=== PATIENT | female | born 1995 | race African-American/Black ===

== ENCOUNTER 2016-10-18 15:25 | Emergency (ER) | payer OTHER ==
[~2016-10-18] VITALS: Ht 167.6 cm; Wt 75.3 kg
[2016-10-18 15:33] VITALS: TEMP 36.7; Ht 167.6 cm; Wt 75.3 kg
[2016-10-18] MEDS ORDERED: KETOROLAC TROMETHAMINE 30 MG/ML VIAL IV STA (15:50)
[2016-10-18 16:05] LABS: HEMATOCRIT 37.9 % (37-47); MEAN CELL VOLUME 86.1 fL (80-100); MEAN CORPUSCULAR HEMOGLOBIN 28.6 pg (25-34); MEAN CORPUSCULAR HGB CONC 33.2 g/dl (32-36); MEAN PLATELET VOLUME 10.4 fL (7.4-10.4); PLATELET COUNT 244 K/uL (130-400); WHITE BLOOD COUNT 4.89 K/uL (4.8-10.8)
--- NOTE | 2016-10-18 16:17 | DIAGNOSTIC IMAGING REPORT ---
CHEST ONE VIEW PORTABLE CLINICAL HISTORY: Chest Pain dyspnea COMPARISON STUDY: No previous studies for comparison. FINDINGS: The bones soft tissues and hemidiaphragms are normal. The cardiomediastinal silhouette is normal. The lungs are clear. The pulmonary vasculature is normal. IMPRESSION: Negative chest. The above report was generated using voice recognition software. It may contain grammatical, syntax or spelling errors. Electronically signed by: Berhane Osborn M.D. 10/18/2016 4:16 PM Dictated Date/Time: 10/18/2016 4:16 PM
[2016-10-18 16:27] LABS: BLOOD UREA NITROGEN 11 mg/dl (7-18); CARBON DIOXIDE 24 mmol/L (21-32); CHLORIDE 107 mmol/L (98-107); CREATININE 0.74 mg/dl (0.60-1.20); GLUCOSE 88 mg/dl (70-99); POTASSIUM 4.2 mmol/L (3.5-5.1); SODIUM 137 mmol/L (136-145)
[2016-10-18 16:45] LABS: BASO % 0.6 %; BASO ABS # 0.03 K/uL (0-0.2); COMPLETE YES; EOS % 3.3 %; LYMPH % 52.4 %; LYMPH ABS # 2.56 K/uL (1.2-3.4); MONO % 9.8 %; NEUT % 33.9 %
[2016-10-18 16:48] VITALS: BP 101/55; PULSE 71; O2SAT 99
--- NOTE | 2016-10-18 19:18 | EMERGENCY ROOM VISIT NOTE ---
History Report prepared by Emanuel: Natalio Alvarado Under the Supervision of: Dr. Robert Saab D.O. First contact with patient: 15:35 Chief Complaint: CHEST PAIN Stated Complaint: PAIN IN LEFT SIDE OF CHEST History of Present Illness The patient is a 21 year old female who presents to the Emergency Room with complaints of left-sided axilla pain that began yesterday. She rates her pain a 6/10 in severity. At this time, the patient was at work smoking a cigarette when she noticed this pain. She describes it as something "poking out" in the armpit area. Her pain radiates into her back. Her pain worsens with movement and deep breathing. This has never happened to her before. Pt denies headache, change in vision, fevers, shortness of breath, nausea, vomiting, diarrhea, pain with urination, and melena. She denies any history of heart disease diabetes, CAD, hypovolemia and hypertension. She denies any sudden deaths at a young age in her family, control use, recent surgeries, hemoptysis, swelling of legs , or recent travel. She recently had an last month, with oral medications. Source of History: patient Onset: yesterday Position: chest (left ribs) Symptom Intensity: 6/10 Quality: sharp Timing: constant Modifying Factors (Worsening): breathing, movement Associated Symptoms: + back pain, No fevers, No headache, No SOB, No nausea , No vomiting, No melena, No diarrhea, No urinary symptoms Review of Systems See HPI for pertinent positives & negatives. A total of 10 systems reviewed and were otherwise negative. Past Medical & Surgical Medical Problems: (1) Acute pyelonephritis (2) No Known Active Medical Problems Family History FH: heart disease Hypertension Social History Smoking Status: Current Every Day Smoker Smokeless Tobacco Use: No Alcohol Use: none Drug Use: none Marital Status: in relationship Housing Status: lives with family Occupation Status: student Current/Historical Medications No Active Prescriptions or Reported Meds Allergies Coded Allergies: No Known Allergies (Unverified , 10/18/16) Physical Exam Vital Signs Date Time Temp Pulse Resp B/P (MAP) Pulse Ox O2 Delivery O2 Flow Rate FiO2 10/18/16 16:48 71 16 101/55 99 Room Air 10/18/16 16:12 70 10/18/16 15:40 Room Air 10/18/16 15:33 36.7 87 20 118/72 97 Room Air Physical Exam GENERAL: alert, ambulating throughout the room without difficulty, well appearing, well nourished, no distress, non-toxic EYE EXAM: normal conjunctiva OROPHARYNX: no exudate, no erythema, lips, buccal mucosa, and tongue normal and mucous membranes are moist NECK: supple, no nuchal rigidity, no adenopathy, non-tender LUNGS: Clear to auscultation. Normal chest wall mechanics HEART: no murmurs, S1 normal and S2 normal CHEST: Acute reproducible tenderness from mid thoracic spine under the left scapula and around to the right anterior chest wall. Pain worsens with internal rotation and extension of humerus. ABDOMEN: abdomen soft, non-tender, normo-active bowel sounds, no masses, no rebound or guarding. BACK: Back is symmetrical on inspection and there is no deformity, no midline tenderness, no CVA tenderness. SKIN: no rashes and no bruising UPPER EXTREMITIES: upper extremities are grossly normal. LOWER EXTREMITIES: No pitting edema. NEURO EXAM: Normal sensorium, cranial nerves II-XII grossly intact, normal speech, no gross weakness of arms, no gross weakness of legs. Medical Decision & Procedures ER Provider Diagnostic Interpretation: Radiology results as stated below per my review and the radiologist's interpretation: CHEST ONE VIEW PORTABLE CLINICAL HISTORY: Chest Pain dyspnea COMPARISON STUDY: No previous studies for comparison. FINDINGS: The bones soft tissues and hemidiaphragms are normal. The cardiomediastinal silhouette is normal. The lungs are clear. The pulmonary vasculature is normal. IMPRESSION: Negative chest. The above report was generated using voice recognition software. It may contain grammatical, syntax or spelling errors. Electronically signed by: Berhane Osborn M.D. 10/18/2016 4:16 PM Dictated Date/Time: 10/18/2016 4:16 PM Laboratory Results 10/18/16 15:47 Red Blood Count 4.40, Mean Corpuscular Volume 86.1, Mean Corpuscular Hemoglobin 28.6, Mean Corpuscular Hemoglobin Concent 33.2, Mean Platelet Volume 10.4, Neutrophils (%) (Auto) 33.9, Lymphocytes (%) (Auto) 52.4, Monocytes (%) (Auto) 9.8, Eosinophils (%) (Auto) 3.3, Basophils (%) (Auto) 0.6, Neutrophils # (Auto) 1.66, Lymphocytes # (Auto) 2.56, Monocytes # (Auto) 0.48, Eosinophils # (Auto) 0.16, Basophils # (Auto) 0.03 10/18/16 15:47 Test 10/18/16 15:47 White Blood Count 4.89 K/uL (4.8-10.8) Red Blood Count 4.40 M/uL (4.2-5.4) Hemoglobin 12.6 g/dL (12.0-16.0) Hematocrit 37.9 % (37-47) Mean Corpuscular Volume 86.1 fL (80-100) Mean Corpuscular Hemoglobin 28.6 pg (25-34) Mean Corpuscular Hemoglobin Concent 33.2 g/dl (32-36) Platelet Count 244 K/uL (130-400) Mean Platelet Volume 10.4 fL (7.4-10.4) Neutrophils (%) (Auto) 33.9 % Lymphocytes (%) (Auto) 52.4 % Monocytes (%) (Auto) 9.8 % Eosinophils (%) (Auto) 3.3 % Basophils (%) (Auto) 0.6 % Neutrophils # (Auto) 1.66 K/uL (1.4-6.5) Lymphocytes # (Auto) 2.56 K/uL (1.2-3.4) Monocytes # (Auto) 0.48 K/uL (0.11-0.59) Eosinophils # (Auto) 0.16 K/uL (0-0.5) Basophils # (Auto) 0.03 K/uL (0-0.2) RDW Standard Deviation 43.5 fL (36.4-46.3) RDW Coefficient of Variation 13.6 % (11.5-14.5) Immature Granulocyte % (Auto) 0.0 % Immature Granulocyte # (Auto) 0.00 K/uL (0.00-0.02) D-Dimer 490 ug/L FEU (0-500) Anion Gap 6.0 mmol/L (3-11) Est Creatinine Clear Calc Drug Dose 124.7 ml/min Estimated GFR () 134.2 Estimated GFR (Non- 115.8 BUN/Creatinine Ratio 15.0 (10-20) Calcium Level 9.0 mg/dl (8.5-10.1) Troponin I < 0.015 ng/ml (0-0.045) Laboratory results per my review. Medications Administered Medications (Trade) Dose Ordered Sig/Hemalatha Route Start Time Stop Time Status Last Admin Dose Admin Ketorolac Tromethamine (Toradol Inj) 30 mg NOW STAT IV 10/18/16 15:50 10/18/16 15:51 DC 10/18/16 15:57 30 MG ECG Indication: chest pain Rate (beats per minute): 71 Rhythm: sinus rhythm Findings: Q waves (Septal), other (Normal axis) ED Course ED COURSE: Vital signs were reviewed and showed normal vitals. The patients medical record was reviewed The above diagnostic studies were performed and reviewed. ED treatments and interventions as stated above. 1535: The patient was evaluated in room C2. A complete history and physical examination was performed. 1550: Ordered Toradol Inj 30 mg IV 1730: Upon reevaluation, the patient is resting. I discussed my findings with the patient and she understands and agrees with the treatment plan. Based on the patients age, coexisting illnesses, exam and lab findings the decision to treat as an outpatient was made. The patient remained stable while under my care. The patient appeared well at the time of discharge. Medical Decision Differential diagnoses includes but is not limited to acute coronary syndrome, myocardial infarction, pericarditis, pulmonary embolus, aortic dissection, pneumonia, pneumothorax, musculoskeletal, shingles, esophageal. Patient is a 21-year-old female who presents to ER for left thoracic wall pain which wraps around from her scapula into the anterior chest. Pain is clearly reproducible. Pain worsens with extension of arm and moving left arm to right shoulder. CBC along with BMP was unremarkable. Troponin was negative with pain greater than 8 hours. EKG and chest x-ray unremarkable. D-dimer negative. Patient was updated at bedside. Toradol given. Patient felt better. Discharged follow-up with PCP. Discussed with Pt concerning signs and symptoms to watch out for. Pt was instructed to follow up with their PCP and discussed with the patient their option to return to the ED at anytime for persistent or worsening symptoms. The appropriate anticipatory guidance and out- patient management, including indications for return to the emergency department , were explained at length to the patient and understood. Medication Reconcilliation Current Medication List: was personally reviewed by me Blood Pressure Screening Patient's blood pressure: Normal blood pressure Blood pressure disposition: Did not require urgent referral Impression Primary Impression: Musculoskeletal chest pain Scribe Attestation The scribe's documentation has been prepared under my direction and personally reviewed by me in its entirety. I confirm that the note above accurately reflects all work, treatment, procedures, and medical decision making performed by me. Departure Information Dispostion Home / Self-Care Prescriptions No Active Prescriptions or Reported Meds Referrals No Doctor, Assigned (PCP) Forms HOME CARE DOCUMENTATION FORM, IMPORTANT VISIT INFORMATION Patient Instructions ED Chest Pain NonCardiac, My [facility] Additional Instructions Please follow up with your primary care doctor or if you are a student, [facility] with in the next 24 hours. Any worsening of your symptoms, please return to the ED immediately. This includes any fevers greater than 100.4, worsening pain, chest pain, shortness breath, persistent nausea, vomiting, unable to eat or drink, or any other concerning signs or symptoms from your standpoint. Please take Motrin or Tylenol as needed for pain.
== END 2016-10-18 17:18 | disposition home or self-care (01) ==
LOC: C.EDB 15:27 → C.EDC 17:18
DX: R07.89 Other chest pain (principal); N12 Tubulo-interstitial nephritis, not specified as acute or chronic; F17.210 Nicotine dependence, cigarettes, uncomplicated; Z82.49 Family history of ischemic heart disease and other diseases of the circulatory system

== ENCOUNTER → 2017-04-27 | Outpatient (CLI) | payer OTHER | END | disposition home or self-care (01) | LOC: C.PAPS 09:51 | PROVIDERS: ATTEND Physician Assistant | DX: Z01.419 Encounter for gynecological examination (general) (routine) without abnormal findings (principal) ==

== ENCOUNTER → 2017-04-27 | Outpatient (CLI) | payer OTHER | END | disposition home or self-care (01) | LOC: C.LABSPEC 17:47 | PROVIDERS: ATTEND Physician Assistant | DX: Z01.419 Encounter for gynecological examination (general) (routine) without abnormal findings (principal); N89.8 Other specified noninflammatory disorders of vagina ==

== ENCOUNTER 2024-08-14 17:43 | Inpatient (IN) ==
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
[2024-08-14] MEDS: SODIUM CHLORIDE 0.9% 1,000 ML IV ONE (18:42)
[2024-08-14 18:57] LABS: Hematocrit (blood only) 38.0 % (37.0-47.0); Hemoglobin 12.0 g/dl (12.0-16.0); Immature Granulocytes # (auto) 0.03 K/uL (0.01-0.20); Immature Granulocytes % (auto) 0.4 %; Mean Corpuscular Hemoglobin 25.4 pg (25.0-34.0); Mean Corpuscular Volume 80.5 fL (80.0-100.0); Platelet Count 345 K/uL (130-400); RDW Standard Deviation 41.9 fL (36.4-46.3); Red Blood Count 4.72 M/uL (4.20-5.40); White Blood Count 7.17 K/ul (4.8-10.8)
[2024-08-14 19:15] LABS: Alanine Aminotransferase 22 U/L (7-52); Albumin Globulin Ratio 1.1 (0.9-2); Alkaline Phosphatase 63 U/L (34-104); Anion Gap 5 (3-11); Bilirubin,Total 0.2 mg/dl (0.2-1.0); Blood Urea Nitrogen 9 mg/dl (6-23); Calcium 9.0 mg/dl (8.6-10.3); Carbon Dioxide 25 mmol/L (21-32); Chloride 107 mmol/L (98-107); Creatinine Clr Calc Pharmacy 145.9 ml/min; Globulin 3.4 gm/dl (2.5-4.0); Glucose 123 mg/dl (70-99(Fasting)); Magnesium 2.0 mg/dl (1.7-2.4); Potassium 4.0 mmol/L (3.5-5.1); Sodium 137 mmol/L (136-145); Total Protein 7.1 gm/dl (6.0-8.3)
[2024-08-14 19:19] LABS: Pregnancy Test, Serum Negative (Negative)
[2024-08-14 19:31] LABS: Thyroid Stimulating Hormone 0.487 uIu/ml (0.300-4.500)
[2024-08-14 19:36] LABS: INR 0.9 (0.9-1.1); Partial Thromboplastin Time 29 Seconds (21-31); Prothrombin Time 9.9 Seconds (9.0-12.0)
[2024-08-14] MEDS: OPTIRAY 320 125ml IV ONE (19:42)
--- NOTE | 2024-08-14 19:54 | CT Scan Report ---
CT pulmonary angiogram with IV contrast History: Chest pain COMPARISON: None TECHNIQUE: CT angiography of the chest was performed without IV contrast followed by IV contrast, including 3D post processing CTA image reconstruction. Dose reduction techniques were achieved by using automatic exposure control and/or adjustment of mA and/or kV according to patient size and/or use of iterative reconstruction technique. FINDINGS: Diagnostic quality: Adequate There is no evidence for pulmonary embolism. The heart is not enlarged. There is no pericardial effusion. There are no abnormally enlarged hilar or mediastinal lymph nodes. The central tracheobronchial tree is clear. The lungs are clear. There is no pleural effusion. Limited visualized upper abdomen.Steatosis. No destructive osseous changes are seen. IMPRESSION: No evidence for pulmonary embolism. Electronically signed by Anastacio Nelson 08-14-2024 7:54 PM
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
[2024-08-14] MEDS ORDERED: NITROGLYCERIN SL 0.4 MG/TAB TAB SL PRN (23:46)
[2024-08-14] MEDS ORDERED: POLYETHYLENE (MIRALAX) 17 GM PACK PO PRN (23:46)
[2024-08-15 05:47] LABS: Hematocrit (blood only) 35.2 % (37.0-47.0); Hemoglobin 11.1 g/dl (12.0-16.0); Immature Granulocytes # (auto) 0.03 K/uL (0.01-0.20); Immature Granulocytes % (auto) 0.4 %; Mean Corpuscular Hemoglobin 25.6 pg (25.0-34.0); Mean Corpuscular Volume 81.1 fL (80.0-100.0); Platelet Count 312 K/uL (130-400); RDW Standard Deviation 41.5 fL (36.4-46.3); Red Blood Count 4.34 M/uL (4.20-5.40); White Blood Count 8.22 K/ul (4.8-10.8)
[2024-08-15 06:06] LABS: Anion Gap 6.0 (3-11); Blood Urea Nitrogen 7.0 mg/dl (6-23); Calcium 8.3 mg/dl (8.6-10.3); Carbon Dioxide 23.0 mmol/L (21-32); Chloride 108.0 mmol/L (98-107); Creatinine Clr Calc Pharmacy 145.9 ml/min; Glucose 91.0 mg/dl (70-99(Fasting)); Magnesium 1.9 mg/dl (1.7-2.4); Potassium 3.8 mmol/L (3.5-5.1); Sodium 137.0 mmol/L (136-145)
[2024-08-15] MEDS: POTASSIUM CHLORIDE 10 MEQ TABCR PO ONE (08:39)
[2024-08-15] MEDS: MAGNESIUM CHLORIDE W/CALCIUM 64MG DELAYED REL TAB PO SCH (08:39)
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
[2024-08-15] MEDS: ACETAMINOPHEN 325 MG TAB PO PRN (11:43)
[2024-08-15 13:07] LABS: Amphetamines+Metham, Urine Neg (Neg); MDMA (Ecstacy), Urine Neg (Neg); Marijuana, Urine Neg (Neg)
[2024-08-15] MEDS: NICOTINE 21 MG/24 HR TDSY TD SCH (13:51)
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
[2024-08-15] MEDS: REMOVE NICODERM PATCH SCH (14:04)
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
--- NOTE | 2024-08-15 17:34 | Electrocardiogram Report ---
Test Reason : Blood Pressure : */* mmHG Vent. Rate : 68 BPM Atrial Rate : 68 BPM P-R Int : 126 ms QRS Dur : 72 ms QT Int : 420 ms P-R-T Axes : 14 -14 -19 degrees QTcB Int : 446 ms Normal sinus rhythm Inferior infarct , age undetermined Poor R wave progression, consider anterior TN vs. lead placement vs. LVH Abnormal ECG When compared with ECG of 06-Apr-2020 04:30, Sinus rhythm has replaced Atrial fibrillation Vent. rate has decreased by 47 bpm Nonspecific T wave abnormality now evident in Anterolateral leads Confirmed by Anastacio Knowles ([id number]) on 08/15/2024 5:34:33 PM Referred By: Confirmed By: Anastacio Knowles
--- NOTE | 2024-08-15 17:42 | Electrocardiogram Report ---
Test Reason : Blood Pressure : */* mmHG Vent. Rate : 62 BPM Atrial Rate : 62 BPM P-R Int : 146 ms QRS Dur : 74 ms QT Int : 440 ms P-R-T Axes : 29 -8 -7 degrees QTcB Int : 446 ms Normal sinus rhythm Low voltage QRS Cannot rule out Anterior infarct (cited on or before 18-Oct-2016) Abnormal ECG When compared with ECG of 14-Aug-2024 18:23, (unconfirmed) Criteria for Inferior infarct are no longer Present Confirmed by Anastacio Knowles ([id number]) on 08/15/2024 5:42:11 PM Referred By: REFERRED SELF Confirmed By: Anastacio Knowles
[2024-08-15] MEDS: GADOBUTROL 65ML VIAL IV ONE (18:34)
--- NOTE | 2024-08-15 19:08 | Magnetic Resonance Report ---
Clinical History: Dizziness Technique: Multiple T1 and T2-weighted magnetic resonance images were obtained of the brain both before and after the administration of intravenous gadolinium contrast Comparison is made to the head CT dated 08/08/2024 Findings: There is no sign of acute or old infarction with normal-appearing diffusion weighted images. No definite focus of demyelination is seen. No mass lesion or other area of abnormal enhancement is identified. There is no intracranial hemorrhage or other fluid collection. No midline shift or other form of herniation is seen. There is no hydrocephalus. The pituitary gland appears normal. Normal flow-voids are seen within the arteries of the [id number]. The orbits and paranasal sinuses appear normal. The mastoid air cells appear clear Impression: Unremarkable MRI of the brain Electronically signed by Cuco Mcneil 08-15-2024 7:08 PM
[2024-08-15] MEDS: METOPROLOL SUCC 25MG EXT REL TAB PO SCH (21:02)
[2024-08-16 07:29] LABS: Anion Gap 5.0 (3-11); Blood Urea Nitrogen 10.0 mg/dl (6-23); Calcium 8.6 mg/dl (8.6-10.3); Carbon Dioxide 25.0 mmol/L (21-32); Chloride 106.0 mmol/L (98-107); Creatinine Clr Calc Pharmacy 154.4 ml/min; Glucose 86.0 mg/dl (70-99(Fasting)); Magnesium 2.1 mg/dl (1.7-2.4); Potassium 4.4 mmol/L (3.5-5.1); Sodium 136.0 mmol/L (136-145)
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
--- NOTE | 2024-08-16 17:29 | Communication Note ---
Date of Service: August 16, 2024 Will hold off on adding losartan for now and start with metoprolol succinate 25 mg daily given relative low blood pressure. LifeVest approved and being fitted. Orders for Cardiac CT and cardiac MRI placed in outpatient chart. Cardio follow up appointment to be arranged , message sent to office. Hamzah Hightower DO
--- NOTE | 2024-08-16 18:37 | Electrocardiogram Report ---
Test Reason : Blood Pressure : */* mmHG Vent. Rate : 65 BPM Atrial Rate : 65 BPM P-R Int : 150 ms QRS Dur : 76 ms QT Int : 428 ms P-R-T Axes : 54 -7 -6 degrees QTcB Int : 445 ms Normal sinus rhythm Poor R wave progression, consider anterior PR vs. lead placement vs. LVH Abnormal ECG When compared with ECG of 15-Aug-2024 08:42, No significant change was found Confirmed by Anastacio Knowles ([id number]) on 08/16/2024 6:37:18 PM Referred By: REFERRED SELF Confirmed By: Anastacio Knowles
[2024-08-17 02:56] VITALS: RESP 18
[2024-08-17 06:53] LABS: Hematocrit (blood only) 35.1 % (37.0-47.0); Hemoglobin 11.3 g/dl (12.0-16.0); Mean Corpuscular Hemoglobin 25.8 pg (25.0-34.0); Mean Corpuscular Volume 80.1 fL (80.0-100.0); Platelet Count 300 K/uL (130-400); RDW Standard Deviation 41.8 fL (36.4-46.3); Red Blood Count 4.38 M/uL (4.20-5.40); White Blood Count 8.03 K/ul (4.8-10.8)
[2024-08-17 07:16] LABS: Anion Gap 6.0 (3-11); Blood Urea Nitrogen 7.0 mg/dl (6-23); Calcium 8.4 mg/dl (8.6-10.3); Carbon Dioxide 24.0 mmol/L (21-32); Chloride 106.0 mmol/L (98-107); Creatinine Clr Calc Pharmacy 174.9 ml/min; Glucose 130.0 mg/dl (70-99(Fasting)); Magnesium 1.9 mg/dl (1.7-2.4); Potassium 3.8 mmol/L (3.5-5.1); Sodium 136.0 mmol/L (136-145)
[2024-08-17 07:38] VITALS: BP 100/64; PULSE 73; TEMP 97.9; O2SAT 97
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
[2024-08-17] MEDS: METOPROLOL SUCC 25MG EXT REL TAB PO SCH (09:04)
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
== END 2024-08-17 11:12 | disposition home or self-care (01) | DRG 309 ==
LOC: ED 17:43 → SUATTDRO 22:55 → EDINP 22:55 → 2S 23:47